=== PATIENT | female | born 1945 | race Caucasian/White ===

== ENCOUNTER 2017-04-04 20:41 | Emergency (ER) | payer MEDICARE ==
[~2017-04-04] VITALS: Ht 165.1 cm; Wt 60.0 kg
[2017-04-04 20:44] VITALS: BP 98/61
[2017-04-04] MEDS ORDERED: WARF3TAB PO (20:49)
[2017-04-04] MEDS ORDERED: LISI-170 PO (20:51)
[2017-04-04] MEDS ORDERED: SODIUM CHLORIDE 0.9%, 500ML IVBOLUS ONE (21:30)
== END 2017-04-04 22:25 | disposition home or self-care (01) ==
LOC: ED 22:02
DX: E86.0 Dehydration (principal); R11.2 Nausea with vomiting, unspecified; R42 Dizziness and giddiness
CPT/HCPCS: 36415; 80047; 96360; 99284; J7040